=== PATIENT | female | born 1930 | race Caucasian/White ===

== ENCOUNTER 2016-09-28 17:19 | Inpatient (IN) | payer OTHER ==
[2016-09-28] MEDS ORDERED: NS 500 ML IV ONE ×2 (17:36→22:26)
--- NOTE | 2016-09-28 17:40 | EDPHY ---
H & P Time Seen by Provider: 09/28/16 17:19 HPI/ROS: CHIEF COMPLAINT: Fall in the bathroom HISTORY OF PRESENT ILLNESS: This 86-year-old woman was in her usual state of health when she went into the bathroom and then did not come out. When the door was opened a couple of minutes later she was found to have slid down the wall and was seated propped against the wall. She said she got a little lightheaded or dizzy and slid down the wall but did not injure herself. EMS arrived and then afterwards she was seen by EMS and her family to have her hands and arms shake for about 20 seconds when she was not responsive. No incontinence and no tongue laceration. She returned almost immediately to her baseline mental status. Patient on arrival complains only of chronic back pain which is not changed. REVIEW OF SYSTEMS: Eye: no change in vision ENT: no sore throat Cardiac: no chest pain or syncope Pulmonary: Not short of breath, chronically on oxygen, respiratory status unchanged. Abdomen: no vomiting, diarrhea, abdominal pain Musculoskeletal: Chronic back pain unchanged. Skin: no rash Neuro: no headache Constitutional: no fever : no urinary symptoms A comprehensive 10 point review of systems is otherwise negative aside from elements mentioned in the history of present illness. PAST MEDICAL HISTORY: Anemia, atrial fibrillation, T12-L3 and L5 fractures. Oxygen dependent COPD. Social history: Lives at [facility], accompanied by her son. General Appearance: Alert and conversant, cooperative. Eyes: No scleral icterus. ENT, Mouth: Normal mucous membranes. Respiratory: Decreased breath sounds, no focal lung sounds, no rales or rhonchi. Cardiovascular: Irregular and tachycardic, sounds as baseline heart rate is approximately 120 beats per minute. Gastrointestinal: Abdomen is soft and non tender. Neurological: Alert and able to tell me the events in the bathroom. Follows commands. Normally conversant. Face symmetric, normal movement and sensation in all extremities. Skin: Warm and dry, no rashes. Musculoskeletal: No cervical thoracic or lumbar spine tenderness. No extremity tenderness to palpation and no extremity deformity. Psychiatric: Not agitated. Emergency Department course/MDM: 1730: Discussed with family, history obtained. Discharge summary dated 07/05/2016 personally reviewed by myself. Plan for EKG CBC and chemistry and 500 mL normal saline bolus, she is thirsty and her 1st blood pressure in the emergency department with systolic of 88. I think seizure was unlikely and much more likely was syncope with myoclonic jerking as the patient did not have incontinence or tongue biting and did return almost immediately to her normal or close to her normal mental status. Not postictal. 1839: Systolic blood pressure 114 and heart rate 108. Venous bicarbonate noted is normal again seizure would be unlikely. 1909: Results and plan discussed with the patient and family, she wants to go home and family is agreeable. I think that is reasonable. 2013: Tried to discharge patient but which she got up to stand she got dizzy nausea lightheaded and almost passed out again. Patient lives independently in uses a walker and at this point can't go home and will need to be admitted for observation. Smoking Status: Former smoker Constitutional: Initial Vital Signs Temperature (C) 36.4 C 09/28/16 17:19 Heart Rate 120 H 09/28/16 17:19 Respiratory Rate 20 09/28/16 17:19 Blood Pressure 88/65 L 09/28/16 17:19 O2 Sat (%) 96 09/28/16 17:19 O2 Delivery Mode Nasal Cannula O2 (L/minute) 2 Allergies/Adverse Reactions: No Known Allergies Allergy (Unverified 04/10/15 13:05) Home Medications: Medication Instructions Recorded Vit C/Antoinette AC/Lut/Copper/Znox 1 each PO BID 01/20/10 [Preservision Lutein Softgel] Cholecalciferol Vit D3 [Vitamin D3 1,000 units PO HS 04/10/15 (*)] Pantoprazole Sodium [Protonix 40mg 40 mg PO BID #60 tab 04/11/15 (*)] Calcium Carb W/Vit D [Calcium Carb 500 mg PO BID 01/07/16 W/Vit D 500/200 (*)] Multivitamins [Multivitamin (*)] 1 each PO DAILY 01/07/16 Carboxymethylcellulose 1% [Refresh 1 drop EACHEYE Q4-6PRN PRN 07/01/16 Celluvisc (*)] Furosemide [Lasix 20 MG (*)] 20 mg PO DAILY 07/01/16 Gabapentin [Neurontin 100 MG (*)] 100 mg PO DAILY 07/01/16 Gabapentin [Neurontin 100 MG (*)] 200 mg PO HS 07/01/16 Simvastatin [Zocor] 10 mg PO HS 07/01/16 Acetaminophen [Tylenol ES 500 mg 1,000 mg PO TID #0 tab 07/05/16 (*)] Carvedilol [Coreg (*)] 12.5 mg PO BIDMEAL #0 tab 07/05/16 Iron/Vit C/Docusate [[place]-Sequels 1 each PO BID #0 tab.er 07/05/16 65 mg (*)] Lidocaine 5% [Lidoderm 5% Patch 2 ea TD DAILY #0 patch 07/05/16 (*)] Patch Removal 1 ea TD DAILY21 #0 patch 07/05/16 Polyethylene Glycol 3350 [Miralax 17 gm PO DAILY #0 pkt 07/05/16 17 gm (*)] Sennosides/Docusate Sodium 1 tab PO BID #0 tab 07/05/16 [Senokot-S] oxyCODONE IR [Oxycodone Ir (*)] 5 mg PO Q4HRS PRN #0 tab 07/05/16 traMADol [Ultram 50 mg (*)] 50 mg PO Q6HRS PRN #0 tab 07/05/16 Medical Decision Making - Diagnostics EKG Interpretation: 12-lead EKG interpreted by me; official reading is in trace master. My interpretation is atrial fibrillation rate 116 with multiple PVCs. Nonspecific T-wave abnormalities. Consult/Admit Bed Type: Garrett Giraldo 2015 - Data Points Laboratory Results: Laboratory Results 09/28/16 18:00 09/28/16 18:00 09/28/16 09/28/16 18:00 18:00 WBC 9.13 10^3/uL 10^3/uL (3.80-9.50) RBC 4.80 10^6/uL 10^6/uL (4.18-5.33) Hgb 11.5 g/dL L g/dL (12.6-16.3) Hct 36.7 % L % (38.0-47.0) MCV 76.5 fL L fL (81.5-99.8) MCH 24.0 pg L pg (27.9-34.1) MCHC 31.3 g/dL L g/dL (32.4-36.7) RDW 19.1 % H % (11.5-15.2) Plt Count 431 10^3/uL H 10^3/uL (150-400) MPV 8.9 fL fL (8.7-11.7) Neut % (Auto) 74.3 % H % (39.3-74.2) Lymph % (Auto) 10.3 % L % (15.0-45.0) [place] % (Auto) 10.2 % % (4.5-13.0) Eos % (Auto) 4.2 % % (0.6-7.6) Baso % (Auto) 0.5 % % (0.3-1.7) Nucleat RBC Rel Count 0.0 % % (0.0-0.2) Absolute Neuts (auto) 6.78 10^3/uL H 10^3/uL (1.70-6.50) Absolute Lymphs (auto) 0.94 10^3/uL L 10^3/uL (1.00-3.00) Absolute Monos (auto) 0.93 10^3/uL H 10^3/uL (0.30-0.80) Absolute Eos (auto) 0.38 10^3/uL 10^3/uL (0.03-0.40) Absolute Basos (auto) 0.05 10^3/uL 10^3/uL (0.02-0.10) Absolute Nucleated RBC 0.00 10^3/uL 10^3/uL (0-0.01) Immature Gran % 0.5 % % (0.0-1.1) Immature Gran # 0.05 10^3/uL 10^3/uL (0.00-0.10) Sodium 135 mEq/L mEq/L (134-144) Potassium 4.7 mEq/L mEq/L (3.5-5.2) Chloride 97 mEq/L mEq/L (97-110) Carbon Dioxide 24 mEq/l mEq/l (22-31) Anion Gap 14 mEq/L mEq/L (8-16) BUN 23 mg/dL mg/dL (7-23) Creatinine 0.9 mg/dL mg/dL (0.6-1.0) Estimated GFR 59 Glucose 119 mg/dL H mg/dL (70-100) Calcium 9.2 mg/dL mg/dL (8.5-10.4) Troponin I < 0.012 ng/mL ng/mL (0-0.034) Medications Given: Discontinued Medications Sodium Chloride (Ns) 500 mls @ 0 mls/hr IV ONCE ONE PRN Reason: As Directed Stop: 09/28/16 17:37 Last Admin: 09/28/16 17:50 Dose: 500 mls Departure - Departure Disposition: [facility] Inpatient Acute Clinical Impression: Syncope Qualifiers: Syncope type: unspecified Qualified Code(s): R55 - Syncope and collapse Condition: Good Instructions: Syncope (ED) Referrals: Tennille Plata MD [Primary Care Provider] - As per Instructions
--- NOTE | 2016-09-28 17:41 | CPEKG ---
Heart Rate: 116 RR Interval: 517 P-R Interval: Invalid QRSD Interval: 66 QT Interval: 352 QTC Interval: 490 P [place]: Invalid QRS [place]: 128 T Wave [place]: 124 EKG Severity - ABNORMAL ECG - EKG Impression: ATRIAL FIBRILLATION, V-RATE 0-0 EKG Impression: MULTIFORM VENTRICULAR PREMATURE COMPLEXES EKG Impression: RIGHT AXIS DEVIATION EKG Impression: LOW VOLTAGE IN FRONTAL LEADS EKG Impression: BORDERLINE R WAVE PROGRESSION, ANTERIOR LEADS EKG Impression: REPOL ABNRM SUGGESTS ISCHEMIA, ANT-LAT LEADS EKG Impression: BORDERLINE PROLONGED QT INTERVAL Electronically Signed By: Carter Meneses 28-Sep-2016 18:08:46
[2016-09-28 18:05] LABS: % IMMATURE GRANULYOCYTES 0.5 % (0.0-1.1); ABSOLUTE IMMATURE GRANULOCYTES 0.05 10^3/uL (0.00-0.10); ADD DIFF? NO; ADD MORPH? NO; ADD SCAN? NO; ATYPICAL LYMPHOCYTE FLAG 10 (0-99); FRAGMENT RBC FLAG 20 (0-99); HEMATOCRIT 36.7 % (38.0-47.0); HEMOGLOBIN 11.5 g/dL (12.6-16.3); LEFT SHIFT FLG 0 (0-99); LIPEMIA HEMOLYSIS FLAG 80 (0-99); MEAN CELL HEMOGLOBIN CONCENTR. 31.3 g/dL (32.4-36.7); MEAN CELL VOLUME 76.5 fL (81.5-99.8); MEAN PLATELET VOLUME 8.9 fL (8.7-11.7); PLATELET CLUMPS FLAG 0 (0-99); PLATELET COUNT 431 10^3/uL (150-400); RED CELL DISTRIBUTION WIDTH 19.1 % (11.5-15.2)
[2016-09-28 18:39] LABS: ANION GAP 14 mEq/L (8-16); CALCIUM 9.2 mg/dL (8.5-10.4); CARBON DIOXIDE 24 mEq/l (22-31); CHLORIDE 97 mEq/L (97-110); CREATININE 0.9 mg/dL (0.6-1.0); GLOMERULAR FILTRATION RATE 59; GLUCOSE 119 mg/dL (70-100); POTASSIUM 4.7 mEq/L (3.5-5.2); SODIUM 135 mEq/L (134-144)
[2016-09-28 18:51] LABS: TROPONIN I < 0.012 ng/mL (0-0.034)
[2016-09-28] MEDS ORDERED: ACETAMINOPHEN 500 MG TAB PO ONE (21:42)
[2016-09-28] MEDS ORDERED: ACETAMINOPHEN 650 MG/20.3 ML UDCUP ONE (21:45)
[2016-09-28] MEDS ORDERED: ACETAMINOPHEN 650 MG/20.3 ML UDCUP PO ONE (21:50)
[2016-09-28] MEDS ORDERED: ACETAMINOPHEN 325 MG TAB PO PRN (22:26)
[2016-09-28] MEDS ORDERED: oxyCODONE IR 5 MG TAB PO PRN (22:26)
[2016-09-28] MEDS ORDERED: ONDANSETRON 4 MG/2 ML VIAL IVP PRN (22:26)
[2016-09-28] MEDS ORDERED: ONDANSETRON DISINTEGRATING 4 MG TAB PO PRN (22:26)
[2016-09-28] MEDS ORDERED: PROMETHAZINE HCL 25 MG/ML INJ IVP PRN (22:26)
[2016-09-28] MEDS ORDERED: BIOTENE DRY MOUTH MOUTHWASH 237 ML BTL MM PRN ×2 (22:28→23:06)
[2016-09-28] MEDS ORDERED: CARBOXYMETHYLCELLULOSE 1% 0.4 ML DROPERETTE EACHEYE PRN (22:28)
[2016-09-28] MEDS ORDERED: POLYETHYLENE GLYCOL 3350 17 GM PKT PO PRN (22:28)
[2016-09-28] MEDS ORDERED: traMADol 50 MG TAB PO PRN (22:28)
[2016-09-28] MEDS ORDERED: BISACODYL 10 MG SUPP PR PRN (22:28)
--- NOTE | 2016-09-29 00:14 | PDGENHP ---
History and Physical - Chief Complaint syncope - History of Present Illness This is an 86 yo F with PMH of chronic AF, CHF with diastolic dysfunction and mildly depressed EF of 55% as well as prior episodes of syncope admitted with what sounds like a near syncopal event versus syncope at home. Patient has chronic dementia and history is therefore limited by her cognitive and memory deficits. From what patient is able to recall, she was in the bathroom and began to feel as if she were going to faint--she was able to lower herself to the ground without falling and unclear if she had complete loss of consciousness or not. It is unclear how, but EMS was called, and found her slumped against the wall in the bathroom. Apparently family and EMS noted that she was unresponsive for several seconds and possibly having some shaking of her extremities as well. She was seen in the ER, and initially was planned for discharge, but then had a second episode in the ER of near syncope. Ms. Cristobal does not recall the second episode at all, but per ER MD patient tried to stand and quickly became dizzy and nauseous and felt as if she might faint. At the time of my evaluation, patient notes feeling "sleepy" but otherwise denies any active complaints. She states she never had chest pain or sob during this day, no fever or chills, no urinary sxs, no cough. Currently not dizzy or nauseated. History Information - Allergies/Home Medication List Allergies/Adverse Reactions: No Known Allergies Allergy (Unverified 04/10/15 13:05) Home Medications: Vit C/Antoinette AC/Lut/Copper/Znox [Preservision Lutein Softgel] 1 each PO BID [Last Taken 09/28/16] Cholecalciferol Vit D3 [Vitamin D3 (*)] 1,000 units PO HS 04/10/15 [Last Taken 06/30/16] Calcium Carb W/Vit D [Calcium Carb W/Vit D 500/200 (*)] 500 mg PO BID 01/07/16 [ Last Taken 07/01/16] Multivitamins [Multivitamin (*)] 1 each PO DAILY 01/07/16 [Last Taken 07/01/16] Carboxymethylcellulose 1% [Refresh Celluvisc (*)] 1 drop EACHEYE Q4H PRN [Last Taken Unknown] Furosemide [Lasix 20 MG (*)] 20 mg PO DAILY 07/01/16 [Last Taken 09/28/16] Gabapentin [Neurontin 100 MG (*)] 200 mg PO BID 07/01/16 [Last Taken 09/28/16] Simvastatin [Zocor] 10 mg PO HS 07/01/16 [Last Taken 06/30/16] Bisacodyl [Dulcolax] 10 mg RC DAILY PRN 09/28/16 [Last Taken Unknown] Calcitonin,[place],Synthetic [Miacalcin] 1 spray NS DAILY 09/28/16 [Last Taken Unknown] Duloxetine HCl [Duloxetine HCl] 30 mg PO HS 09/28/16 [Last Taken Unknown] Gluc Oxid/l-Peroxid/Muramidase [Biotene Mouthwash (*)] 1 applic MM AD PRN [Last Taken Unknown] Loratadine [Claritin 10 mg] 10 mg PO DAILY 09/28/16 [Last Taken Unknown] Pantoprazole Sodium [Protonix 40mg (*)] 40 mg PO BID 09/28/16 [Last Taken ] Polyethylene Glycol 3350 [Miralax 17 gm (*)] 17 gm PO DAILY PRN 09/28/16 [Last Taken Unknown] traMADol [Ultram 50 mg (*)] 50 mg PO DAILY 09/28/16 [Last Taken 09/28/16] traMADol [Ultram 50 mg (*)] 50 mg PO Q6H PRN 09/28/16 [Last Taken Unknown] I have personally reviewed and updated: family history, medical history, social history, surgical history - Past Medical History atrial fibrillation, arthritis, CHF (diastolic dysfunction/EF 55%), degenerative disc disease, dementia, hyperlipidemia, osteoporosis (with multiple compression fractures and sacral insufficiency fracture) Additional medical history: anemia--iron deficiency. chronic hypoxic respiratory failure on 2L at baseline - Surgical History Reports: appendectomy - Family History Positive for: non-pertinent (both parents of old age) - Social History Smoking Status: Former smoker Alcohol Use: Occasionally Drug Use: None Additional social history: lives in [facility] living, uses a walker to get around Review of Systems ROS: 10pt was reviewed & negative except for what was stated in HPI & below Physical Exam Temp Pulse Resp BP Pulse Ox 36.8 C 126 H 19 99/65 L 89 L 09/28/16 22:59 09/28/16 22:59 09/28/16 22:59 09/28/16 22:59 09/28/16 22:59 O2 (L/minute) 4 Constitutional: no apparent distress, appears nourished Eyes: PERRL, anicteric sclera Ears, Nose, Mouth, Throat: moist mucous membranes, hearing normal Cardiovascular: systolic murmur, irregularly irregular, No edema Respiratory: no respiratory distress, no rales or rhonchi, clear to auscultation Gastrointestinal: normoactive bowel sounds, soft, non-tender abdomen Genitourinary: no bladder tenderness Skin: warm, normal color Musculoskeletal: full muscle strength, no muscle tenderness Neurologic: AAOx3, CN II-XII Intact Psychiatric: interacting appropriately, not anxious, poor memory Lab Data & Imaging Review 09/28/16 18:00 09/28/16 18:00 WBC 9.13 10^3/uL (3.80-9.50) 09/28/16 18:00 RBC 4.80 10^6/uL (4.18-5.33) 09/28/16 18:00 Hgb 11.5 g/dL (12.6-16.3) L 09/28/16 18:00 Hct 36.7 % (38.0-47.0) L 09/28/16 18:00 MCV 76.5 fL (81.5-99.8) L 09/28/16 18:00 MCH 24.0 pg (27.9-34.1) L 09/28/16 18:00 MCHC 31.3 g/dL (32.4-36.7) L 09/28/16 18:00 RDW 19.1 % (11.5-15.2) H 09/28/16 18:00 Plt Count 431 10^3/uL (150-400) H 09/28/16 18:00 MPV 8.9 fL (8.7-11.7) 09/28/16 18:00 Neut % (Auto) 74.3 % (39.3-74.2) H 09/28/16 18:00 Lymph % (Auto) 10.3 % (15.0-45.0) L 09/28/16 18:00 [place] % (Auto) 10.2 % (4.5-13.0) 09/28/16 18:00 Eos % (Auto) 4.2 % (0.6-7.6) 09/28/16 18:00 Baso % (Auto) 0.5 % (0.3-1.7) 09/28/16 18:00 Nucleat RBC Rel Count 0.0 % (0.0-0.2) 09/28/16 18:00 Absolute Neuts (auto) 6.78 10^3/uL (1.70-6.50) H 09/28/16 18:00 Absolute Lymphs (auto) 0.94 10^3/uL (1.00-3.00) L 09/28/16 18:00 Absolute Monos (auto) 0.93 10^3/uL (0.30-0.80) H 09/28/16 18:00 Absolute Eos (auto) 0.38 10^3/uL (0.03-0.40) 09/28/16 18:00 Absolute Basos (auto) 0.05 10^3/uL (0.02-0.10) 09/28/16 18:00 Absolute Nucleated RBC 0.00 10^3/uL (0-0.01) 09/28/16 18:00 Immature Gran % 0.5 % (0.0-1.1) 09/28/16 18:00 Immature Gran # 0.05 10^3/uL (0.00-0.10) 09/28/16 18:00 Sodium 135 mEq/L (134-144) 09/28/16 18:00 Potassium 4.7 mEq/L (3.5-5.2) 09/28/16 18:00 Chloride 97 mEq/L (97-110) 09/28/16 18:00 Carbon Dioxide 24 mEq/l (22-31) 09/28/16 18:00 Anion Gap 14 mEq/L (8-16) 09/28/16 18:00 BUN 23 mg/dL (7-23) 09/28/16 18:00 Creatinine 0.9 mg/dL (0.6-1.0) 09/28/16 18:00 Estimated GFR 59 09/28/16 18:00 Glucose 119 mg/dL (70-100) H 09/28/16 18:00 Calcium 9.2 mg/dL (8.5-10.4) 09/28/16 18:00 Troponin I < 0.012 ng/mL (0-0.034) 09/28/16 23:09 Visualized and Interpreted imaging results: Yes Interpretation: L spine xray with stable t12,l2,l3, l5 compression fractures as well as sacral fracture Visualized and Interpreted EKG results: Yes EKG Interpretation: Positive for: other (atrial fibrillation, RAD, PVCs, PRWP) Assessment & Plan Assessment: Syncope (Acute) 86 yo F with PMH of chronic AF, chronic respiratory failure presenting with syncope # syncope: difficult to ascertain etiology given limited history, however given occurrence in the setting of voiding and with enough of a prodrome to allow her to safely get herself to the ground, sounds most c/w vasovagal syncope. Will monitor on tele, obtain serial trops and repeat ecg in am. If that is all wnl, will not w/u further but plan to dc home so long as she is able to ambulate safely. She does have chronic AF as next and hx of pauses, monitoring on tele. Mildly hypotensive and suspect volume down, gentle IVF, but orthostatic hypotension also could be contributing. # chronic AF: with rates currently in the low 100s, she previously was on both coreg and digoxin but more recently discharged on increased dose of coreg at 12.5 bid--her home MAR not currently listing any BB or other rate controlling agent--reviewed OP cardiology notes which do not mention plan to dc coreg. Will need to clarify, but for now will resume coreg at prior dosing and monitor. Has not been on AC given chronic iron deficiency anemia and fall risk. # dementia: this does seem to be at baseline in comparison to prior visit notes and per family, risk for delerium # chronic iron deficiency anemia: h/h actually higher than baseline currently and suspect that is at least in part due to hemoconcentration, will trend # chronic chf: with diastolic dysfunction and relatively preserved EF at 55%, no e/o decompensation # osteoporosis/compression fractures: patient denies pain currently, pt/ot to evaluate # DNR, son Hesham is MDPOA # dispo: observation status, will likely be ready to dc home in am so long as she is ambulating safely Patient new to my care. Old records including lingle cardiology reports reviewed and summarized as above. Care plan reviewed with ER doc including plans for tele monitoring.
[2016-09-29] MEDS ORDERED: CARVEDILOL 25 MG TAB PO ONE (00:35)
[2016-09-29] MEDS ORDERED: CARVEDILOL 6.25 MG TAB PO ONE (01:00)
[2016-09-29 05:44] LABS: COLOR AMBER; LEUKOCYTE ESTERASE,URINE 2+ (NEGATIVE); NITRITE,URINE NEGATIVE (NEGATIVE)
[2016-09-29 05:50] LABS: % IMMATURE GRANULYOCYTES 0.5 % (0.0-1.1); ABSOLUTE IMMATURE GRANULOCYTES 0.04 10^3/uL (0.00-0.10); ADD DIFF? NO; ADD MORPH? NO; ADD SCAN? NO; ATYPICAL LYMPHOCYTE FLAG 20 (0-99); FRAGMENT RBC FLAG 20 (0-99); HEMATOCRIT 32.1 % (38.0-47.0); LEFT SHIFT FLG 0 (0-99); LIPEMIA HEMOLYSIS FLAG 80 (0-99); MEAN CELL HEMOGLOBIN 23.6 pg (27.9-34.1); MEAN CELL HEMOGLOBIN CONCENTR. 31.2 g/dL (32.4-36.7); MEAN CELL VOLUME 75.7 fL (81.5-99.8); MEAN PLATELET VOLUME 9.1 fL (8.7-11.7); PLATELET CLUMPS FLAG 0 (0-99); PLATELET COUNT 390 10^3/uL (150-400); RED BLOOD CELL COUNT 4.24 10^6/uL (4.18-5.33); RED CELL DISTRIBUTION WIDTH 18.5 % (11.5-15.2)
[2016-09-29 05:52] LABS: BACTERIA 1+ /hpf (NONE SEEN); WBC,URINE 50-182 /hpf (0-3)
[2016-09-29 06:04] LABS: ANION GAP 12 mEq/L (8-16); CALCIUM 8.6 mg/dL (8.5-10.4); CARBON DIOXIDE 22 mEq/l (22-31); CHLORIDE 102 mEq/L (97-110); CREATININE 0.9 mg/dL (0.6-1.0); GLOMERULAR FILTRATION RATE 59; GLUCOSE 98 mg/dL (70-100); MAGNESIUM 1.5 mg/dL (1.6-2.3); POTASSIUM 4.4 mEq/L (3.5-5.2); SODIUM 136 mEq/L (134-144)
[2016-09-29 06:13] LABS: TROPONIN I 0.014 ng/mL (0-0.034)
[2016-09-29] MEDS ORDERED: FUROSEMIDE 20 MG TAB PO SCH (09:00)
[2016-09-29] MEDS ORDERED: LUT PO SCH (09:00)
[2016-09-29] MEDS ORDERED: ZNOX PO SCH (09:00)
[2016-09-29] MEDS ORDERED: COPPER PO SCH (09:00)
[2016-09-29] MEDS ORDERED: CALCITONIN 200 UNITS/SPRAY INH NS SCH (09:00)
[2016-09-29] MEDS ORDERED: VITE AC PO SCH (09:00)
[2016-09-29] MEDS ORDERED: NON-FORMULARY NEW DRUG (Loratadine [Claritin 10 Mg] 10 MG) PO SCH (09:00)
[2016-09-29] MEDS ORDERED: VIT C PO SCH (09:00)
[2016-09-29] MEDS ORDERED: [UNRECOGNIZED DRUG - OTHER] PO SCH (09:00)
[2016-09-29] MEDS: PRESERVISION AREDS2 FORMULA EYE VIT 1 EACH PO SCH ×3 (09:24→17:53)
[2016-09-29] MEDS: CETIRIZINE 10 MG TAB PO SCH (09:24)
[2016-09-29] MEDS: traMADol 50 MG TAB PO SCH (09:24)
[2016-09-29] MEDS: GABAPENTIN 100 MG CAP PO SCH ×2 (09:24→21:51)
[2016-09-29] MEDS: PANTOPRAZOLE SODIUM 40 MG TAB PO SCH ×2 (09:25→21:50)
[2016-09-29] MEDS: MULTIVITAMINS 1 EACH TAB PO SCH (09:25)
[2016-09-29] MEDS: SENNOSIDES/DOCUSATE SODIUM TAB PO SCH ×3 (09:25→21:50)
[2016-09-29] MEDS: CALCIUM CARB W/VIT D 500 MG TAB PO SCH ×2 (09:25→21:50)
[2016-09-29] MEDS: CARVEDILOL 6.25 MG TAB PO SCH ×2 (09:25→17:51)
[2016-09-29] MEDS: ENOXAPARIN 30 MG/0.3 ML SYR SC SCH (09:31)
[2016-09-29] MEDS: ACETAMINOPHEN 500 MG TAB PO SCH ×3 (09:43→21:50)
[2016-09-29] MEDS: CALCITONIN 200 UNITS/SPRAY INH NS SCH (09:46)
--- NOTE | 2016-09-29 11:24 | CPEKG ---
Heart Rate: 120 RR Interval: 500 QRSD Interval: 74 QT Interval: 352 QTC Interval: 498 QRS [place]: 81 T Wave [place]: 99 EKG Severity - ABNORMAL ECG - EKG Impression: ATRIAL FIBRILLATION, V-RATE 86-142 EKG Impression: MULTIFORM VENTRICULAR PREMATURE COMPLEXES EKG Impression: BORDERLINE RIGHT AXIS DEVIATION EKG Impression: LOW VOLTAGE IN FRONTAL LEADS EKG Impression: BORDERLINE PROLONGED QT INTERVAL Electronically Signed By: Faye Daly 29-Sep-2016 15:13:59
--- NOTE | 2016-09-29 15:41 | HOSPPROG ---
Hospitalist Progress Note Assessment/Plan: Syncope (Acute) 86 yo F with PMH of chronic AF, chronic respiratory failure presenting with syncope. 1st encounter with the patient, chart reviewed. Discussed with Dr. Han. # syncope: difficult to ascertain etiology given limited history given occurrence in the setting of voiding and overall increased weakness, sounds most c/w vasovagal syncope. monitor on tele, tachy, afib serial trops negative repeat ecg afib, stable No other indication for cardiac evaluation have chronic AF as next and hx of pauses, monitoring on tele. Mildly hypotensive and suspect volume down, gentle IVF, but orthostatic hypotension also could be contributing. # chronic AF: with rates currently in the low 100s, coreg at 12.5 bid-- Will need to clarify meds Has not been on AC given chronic iron deficiency anemia and fall risk. # Possible UTI: treat given recent significant decline an Health Start on Rocephin Follow urine culture # gait instability: Continue PT OT eval Recommending snf rehab # dementia: this does seem to be at baseline in comparison to prior visit notes and per family, risk for delerium # chronic iron deficiency anemia: h/h actually higher than baseline currently and suspect that is at least in part due to hemoconcentration, will trend # chronic chf: with diastolic dysfunction and relatively preserved EF at 55%, no e/o decompensation # osteoporosis/compression fractures: patient denies pain currently, pt/ot to evaluate # DNR, son Hesham is MDPOA # dispo: change to inpt status Requiring IV antibiotic therapy Continue PT OT eval Anticipate discharge in 1-2 days to SNF Subjective: Minimal interaction. Asleep but arousable. Denies any pain currently. Objective: Vital Signs Temp Pulse Resp BP Pulse Ox 37.1 C 112 H 20 107/75 94 09/29/16 12:00 09/29/16 12:00 09/29/16 12:00 09/29/16 12:00 09/29/16 12:00 Laboratory Results 09/29/16 05:07 09/29/16 05:07 09/28/16 09/29/16 09/30/16 05:59 05:59 05:59 Intake Total 1100 Output Total 200 Balance 900 - Physical Exam Constitutional: appears nourished, not in pain, chronically ill appearing Eyes: PERRL, anicteric sclera, EOMI Ears, Nose, Mouth, Throat: moist mucous membranes, hearing normal, ears appear normal Cardiovascular: No JVD, No tachycardia, No edema Respiratory: no respiratory distress, no rales or rhonchi, reduced air movement Gastrointestinal: No tenderness, No ascites, No guarding Skin: warm, normal color, No erythema Musculoskeletal: no joint effusions, generalized weakness, No joint tenderness Neurologic: No AAOx3 Psychiatric: not anxious, poor insight, poor judgement, poor memory, No thought process linear ICD10 Worksheet Patient Problems: Problems Problem Status Onset Anemia Acute Acute electrocardiogram changes Acute Vomiting Acute Sacral insufficiency fracture Acute Back pain Acute Atrial fibrillation Acute Syncope Acute
[2016-09-29] MEDS ORDERED: PRAVASTATIN SODIUM 20 MG TAB PO SCH (21:00)
[2016-09-29] MEDS ORDERED: CHOLECALCIFEROL VIT D3 1,000 UNITS TAB PO SCH (21:00)
[2016-09-29] MEDS ORDERED: DULoxetine 30 MG CAP PO SCH (21:00)
[2016-09-29] MEDS ORDERED: NON-FORMULARY NEW DRUG (Simvastatin [Zocor] 10 MG) PO SCH (21:00)
[2016-09-29] MEDS ORDERED: D5W 1/2 NS 1,000 ML IV SCH (22:15)
[2016-09-29 23:37] VITALS: RESP 16
[2016-09-30 08:24] VITALS: TEMP 98.4
[2016-09-30] MEDS ORDERED: NS 1,000 ML IV SCH (09:00)
[2016-09-30] MEDS ORDERED: AZITHROMYCIN IV 500 MG in D5W 250 ML IV SCH (09:00)
[2016-09-30] MEDS: GABAPENTIN 100 MG CAP PO SCH (09:12)
[2016-09-30] MEDS: CETIRIZINE 10 MG TAB PO SCH (09:13)
[2016-09-30] MEDS: PRESERVISION AREDS2 FORMULA EYE VIT 1 EACH PO SCH (09:13)
[2016-09-30] MEDS: CARVEDILOL 6.25 MG TAB PO SCH (09:13)
[2016-09-30] MEDS: CALCIUM CARB W/VIT D 500 MG TAB PO SCH (09:13)
[2016-09-30] MEDS: ACETAMINOPHEN 500 MG TAB PO SCH (09:13)
[2016-09-30] MEDS: MULTIVITAMINS 1 EACH TAB PO SCH (09:13)
[2016-09-30] MEDS: traMADol 50 MG TAB PO SCH (09:14)
[2016-09-30] MEDS: SENNOSIDES/DOCUSATE SODIUM TAB PO SCH (09:14)
[2016-09-30] MEDS: PANTOPRAZOLE SODIUM 40 MG TAB PO SCH (09:14)
[2016-09-30] MEDS: ENOXAPARIN 30 MG/0.3 ML SYR SC SCH (09:46)
[2016-09-30] MEDS: CALCITONIN 200 UNITS/SPRAY INH NS SCH (09:47)
[2016-09-30 12:15] VITALS: BP 70/53; PULSE 128; O2SAT 89
--- NOTE | 2016-09-30 15:41 | GDS ---
[f rep st] DISCHARGE SUMMARY/ SUMMARY HOSPITAL DIAGNOSES: 1. Urinary tract infection. 2. Left lower lobe pneumonia. 3. Acute hypoxemic respiratory failure. 4. Chronic atrial fibrillation without anticoagulation. 5. Dementia. 6. Chronic iron deficiency anemia. 7. Chronic congestive heart failure. STUDIES AND PROCEDURES DONE: Lumbar spine x-ray. HOSPITAL COURSE: Ms. Jamil is an 86-year-old female, who presented to the emergency room with noted presyncopal episode. She was evaluated and diagnosed with: 1. Left lower lobe pneumonia. During this hospitalization, she was started on Rocephin IV for noted pneumonia. 2. Acute hypoxemic respiratory failure secondary to the patient's infectious process. 3. Urinary tract infection. Again, she was treated with Rocephin secondary to this condition. 4. Dementia. She is at her baseline. 5. Chronic iron-deficiency anemia. The patient's blood count was stable. During the hospitalization, the patient was responding well. She was conversant and cooperative, passing a speech evaluation. She had a sudden onset of mental status change with a gaze deviation to the left with unresponsiveness. The patient was a DNR and not aggressively resuscitated. I called the son who is her MDPOA during her sudden decline. His wishes were to keep the patient comfortable and not to do anything to prolong her life. Ms. Cristobal was allowed to pass comfortably during this hospitalization, never recovering from her acute onset of mentation change and unresponsiveness. The farm equipment assembler and counseling case manager were contacted. /[id number]/MODL [id number]
== END 2016-09-30 15:19 | disposition expired | DRG 193 ==
LOC: EDUNIT# → F3N 21:50 → OBSVTOIN 09-29 14:54 → F3E 09-30 08:03
PROVIDERS: ADMIT Internal Medicine; ATTEND Internal Medicine
DX: J18.9 Pneumonia, unspecified organism (principal); N39.0 Urinary tract infection, site not specified; J96.21 Acute and chronic respiratory failure with hypoxia; I50.32 Chronic diastolic (congestive) heart failure; I48.2 Chronic atrial fibrillation; F03.90 Unspecified dementia, unspecified severity, without behavioral disturbance, psychotic disturbance, mood disturbance, and anxiety; D50.9 Iron deficiency anemia, unspecified; M81.0 Age-related osteoporosis without current pathological fracture; R26.9 Unspecified abnormalities of gait and mobility; Z99.81 Dependence on supplemental oxygen; Z87.891 Personal history of nicotine dependence; Z66 Do not resuscitate
CPT/HCPCS: 92610-GN; 97163-GP; 97166-GO; 97530-GP; G0378; G8978-GP-CM; G8979-GP-CK; G8987-GO-CM; G8988-GO-CK; G8996-GN-CK; G8997-GN-CJ; J0456; J0696; J1650